=== PATIENT | female | born 1995 | race Hispanic/Latino ===

== ENCOUNTER 2020-11-28 17:27 | Emergency (ER) | payer BC ==
[2020-11-28] MEDS ORDERED: ACETAMINOPHEN 500 MG TAB ONE (18:30)
--- NOTE | 2020-11-28 18:37 | RAD REPORT ---
EXAM DESCRIPTION: RAD - Ankle Right 3 View - 11/28/2020 6:16 pm CLINICAL HISTORY: Right ankle pain FINDINGS: No fracture is seen. There is borderline widening of the medial clear space which could indicate an to the ligament
--- NOTE | 2020-11-28 19:17 | ER ---
Nurse's Notes [facility] Name: Kezia Jimenez Age: 25 yrs Sex: Female : 1995 Arrival Date: 11/28/2020 Time: 17:30 Bed Treatment Private MD: Diagnosis: Sprain of ankle-right Presentation: 11/28 17:39 Chief complaint: Patient states: Tripped over pool net while chasing daughter around ph pool, rolled R ankle,slight swelling noted, small abrasion as well. Coronavirus screen: Client denies travel out of the [place] in the last 14 days. At this time, the client does not indicate any symptoms associated with coronavirus-19. Ebola Screen: No symptoms or risks identified at this time. Initial Sepsis Screen: Does the patient meet any 2 criteria? No. Patient's initial sepsis screen is negative. Does the patient have a suspected source of infection? No. Patient's initial sepsis screen is negative. Risk Assessment: Do you want to hurt yourself or someone else? Patient reports no desire to harm self or others. Onset of symptoms was November 28, 2020. 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 - Social history:: Smoking status: Patient denies any tobacco usage or history of. Screenin:03 Abuse screen: Denies threats or abuse. Denies injuries from another. Nutritional ph screening: No deficits noted. Tuberculosis screening: No symptoms or risk factors identified. Fall Risk None identified. Assessment: 18:02 General: Appears in no apparent distress. comfortable, well groomed, Behavior is calm, ph cooperative, appropriate for age. Pain: Complains of pain in right ankle. Neuro: Level of Consciousness is awake, alert, obeys commands, Oriented to person, place, time, situation. Cardiovascular: Capillary refill < 3 seconds in bilateral fingers Patient's skin is warm and dry. Musculoskeletal: Circulation, motion, and sensation intact. Range of motion: intact in all extremities, Swelling present in right ankle. Injury Description: Abrasion sustained to right ankle. Vital Signs: 17:39 BP 133 / 80; Pulse 102; Resp 18; Temp 98.2; Pulse Ox 98% on R/A; Weight 104.33 kg; ph Height 5 ft. 5 in. (165.10 cm); 17:39 Body Mass Index 38.27 (104.33 kg, 165.10 cm) ph ED Course: 17:30 Patient arrived in ED. mr 17:40 Triage completed. ph 17:40 Arm band placed on Patient placed in an exam room. ph 17:48 Melquiades Cespedes PA is PHCP. cp 17:48 Jesús Barnes MD is Attending Physician. cp 18:02 Renetta Malone, RN is Primary Nurse. ph 18:03 Patient has correct armband on for positive identification. Bed in low position. Call ph light in reach. Door closed. Noise minimized. Warm blanket given. 18:16 XRAY Ankle RIGHT 3 view In Process Unspecified. EDMS 19:15 Amandeep Presley MD is Referral Physician. cp 19:41 No provider procedures requiring assistance completed. Patient did not have IV access ph during this emergency room visit. 19:41 Crutch training done. Ortho shoe applied to right foot. ph Administered Medications: 18:10 Drug: Tylenol 1000 mg Route: PO; ph 18:10 Follow up: Response: No adverse reaction ph Outcome: 19:16 Discharge ordered by MD. cp 19:41 Discharged to home with crutches. ph 19:41 Condition: good 19:41 Discharge instructions given to patient. 19:41 Instructed on discharge instructions, follow up and referral plans. medication usage, Demonstrated understanding of instructions, follow-up care, medications, crutch walking, Prescriptions given X 1. 19:42 Patient left the ED. ph Signatures: Dispatcher [employer] [facility] Rosy Mora Renetta Malone RN RN ph Melquiades Cespedes PA PA cp
--- NOTE | 2020-11-28 19:17 | EDPHYS ---
Physician Documentation [facility] Name: Kezia Jimenez Age: 25 yrs Sex: Female : 1995 Arrival Date: 11/28/2020 Time: 17:30 Bed Treatment Private MD: ED Physician Jesús Barnes HPI: 11/28 18:05 This 25 yrs old Female presents to ER via Wheelchair with complaints of Ankle cp Injury. 18:05 The patient presents with an injury, pain, that is acute. The complaints affect the cp right ankle. Onset: The symptoms/episode began/occurred just prior to arrival. Context: resulted from the patient tripping, The mechanism of injury involved eversion of the affected ankle. The patient can fully bear weight on the affected extremity. the patient is able to ambulate, with moderate difficulty. Associated signs and symptoms: Pertinent positives: swelling, Pertinent negatives: calf tenderness, numbness. Modifying factors: the symptoms are aggravated by weight bearing, movement. 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 - Social history:: Smoking status: Patient denies any tobacco usage or history of. ROS: 18:10 MS/extremity: Positive for injury or acute deformity, pain, swelling, tenderness, of cp the right ankle, Negative for decreased range of motion, paresthesias. 18:10 Constitutional: Negative for body aches, chills, fever. cp 18:10 Neck: Negative for pain with movement, pain at rest, stiffness. 18:10 Respiratory: Negative for cough, shortness of breath, wheezing. 18:10 Abdomen/GI: Negative for abdominal pain, nausea, vomiting, and diarrhea. 18:10 Back: Negative for pain at rest, pain with movement. 18:10 Neuro: Negative for altered mental status, headache, weakness. 18:10 All other systems are negative. Exam: 18:15 Constitutional: The patient appears in no acute distress, alert, awake, well developed, cp well nourished, obese. 18:15 Head/Face: Normocephalic, atraumatic. cp 18:15 Musculoskeletal/extremity: Extremities: grossly normal except: noted in the right ankle: pain, swelling, tenderness, There is no evidence of deformity, ROM: limited passive range of motion due to pain, in the right ankle, Pulses: noted to be 2+ in the right dorsalis pedis artery, Sensation intact. Achilles tendon palpated and intact, no pain to palpation noted proximal right fifth metatarsal and/or proximal fibula. 18:15 Skin: injury, abrasion(s), small abrasion noted, of the right ankle. Vital Signs: 17:39 BP 133 / 80; Pulse 102; Resp 18; Temp 98.2; Pulse Ox 98% on R/A; Weight 104.33 kg; ph Height 5 ft. 5 in. (165.10 cm); 17:39 Body Mass Index 38.27 (104.33 kg, 165.10 cm) ph Procedures: 19:20 Splinting: Splint applied to right ankle using walking boot. applied by nurse. Examined cp by me, post splint application: neurovascular intact, Patient tolerated well. 19:20 Crutch training provided to patient and/or family. Return demonstration given. cp MDM: 17:55 Patient medically screened. cp 18:00 Differential diagnosis: fracture, sprain, dislocation. cp 19:15 Data reviewed: vital signs, nurses notes, radiologic studies, plain films. cp 19:15 Test interpretation: by ED physician or midlevel provider: plain radiologic studies. cp Counseling: I had a detailed discussion with the patient and/or guardian regarding: the historical points, exam findings, and any diagnostic results supporting the discharge/admit diagnosis, radiology results, the need for outpatient follow up, a orthopedic surgeon, to return to the emergency department if symptoms worsen or persist or if there are any questions or concerns that arise at home. ED course: VSS. Pain improved with meds. Will discharge to home for continued monitoring. 11/28 17:53 Order name: XRAY Ankle RIGHT 3 view; Complete Time: 19:00 cp 11/28 19:12 Order name: Walking boot cp 11/28 19:12 Order name: Crutches cp Administered Medications: 18:10 Drug: Tylenol 1000 mg Route: PO; ph 18:10 Follow up: Response: No adverse reaction ph Disposition: 19:25 Chart complete. 11/29 07:08 Co-signature as Attending Physician, Jesús Barnes MD I agree with the assessment and kdr plan of care. Disposition Summary: 11/28/20 19:16 Discharge Ordered Location: Home cp Problem: new cp Symptoms: have improved cp Condition: Stable cp Diagnosis - Sprain of ankle - right cp Followup: cp - With: Amandeep Presley MD - When: 2 - 3 days - Reason: ankle sprain Discharge Instructions: - Discharge Summary Sheet cp - Elastic Bandage and RICE Therapy cp - Ankle Sprain cp Forms: - Medication Reconciliation Form cp - Thank You Letter cp - Antibiotic Education cp - Prescription Opioid Use cp Prescriptions: - Naprosyn 500 mg Oral Tablet - take 1 tablet by ORAL route 2 times per day take with food; 20 tablet; Refills: cp 0, Product Selection Permitted Signatures: Dispatcher [employer] EDJesús Peralta MD MD kdr Hall, Patricia, RN RN ph Melquiades Cespedes, PA PA cp
[2020-11-28 19:47] VITALS: BP 133/80; TEMP 98.2; O2SAT 98
== END 2020-11-28 19:42 | disposition home or self-care (01) ==
LOC: ER 17:27
DX: S93.401A Sprain of unspecified ligament of right ankle, initial encounter (principal); W01.0XXA Fall on same level from slipping, tripping and stumbling without subsequent striking against object, initial encounter
CPT/HCPCS: 99284

== ENCOUNTER 2021-01-16 20:00 | Emergency (ER) | payer BC ==
[2021-01-16] MEDS ORDERED: ACETAMINOPHEN 325 MG TABLET ONE (21:05)
[2021-01-16] MEDS ORDERED: CASIRIVIMAB/IMDEVIMAB 10 ML VIAL ONE (22:08)
[2021-01-16] MEDS ORDERED: NA CHLORIDE 0.9% 250 ML ONE (22:09)
--- NOTE | 2021-01-16 22:16 | EDPHYS ---
Physician Documentation [facility] Name: Kezia Jimenez Age: 25 yrs Sex: Female : 1995 Arrival Date: 01/16/2021 Time: 20:03 Bed 12 Private MD: ED Physician Nasir Vazquez HPI: 01/16 21:07 This 25 yrs old Female presents to ER via Ambulatory with complaints of COVID rn POSITIVE, BODY PAIN, CHILLS, NO TASTE OR SMELL. 21:07 The patient or guardian reports cough, described as mild, flu symptoms, myalgias, no rn appetite. 21:07 Onset: The symptoms/episode began/occurred 5 day(s) ago. Severity of symptoms: At their rn worst the symptoms were mild, in the emergency department the symptoms are unchanged. Modifying factors: The symptoms are alleviated by nothing, the symptoms are aggravated by nothing. Associated signs and symptoms: Pertinent positives: diarrhea, fever, rhinorrhea, Loss of taste and smell. The patient has not experienced similar symptoms in the past. The patient has been recently seen by a physician:. Patient reports about 5 days of fever, chills, myalgias, cough, diarrhea, fatigue, and loss of taste and smell. Covid +2 days ago. Reports returned today for persistent fever and muscle aches. Denies shortness of breath or chest pain.. 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 - Social history:: Smoking status: Patient denies any tobacco usage or history of. - Family history:: not pertinent. - Hospitalizations: : No recent hospitalization is reported. ROS: 21:07 Constitutional: Positive for fever and chills Eyes: Negative for injury, pain, redness, rn and discharge, ENT: Positive for congestion Neck: Negative for injury, pain, and swelling, Cardiovascular: Negative for chest pain, palpitations, and edema, Respiratory: Positive for cough, negative for shortness of breath Abdomen/GI: Negative for abdominal pain, nausea, vomiting Back: Negative for injury and pain, : Negative for injury, bleeding, discharge, and swelling, MS/Extremity: Negative for injury and deformity, Skin: Negative for injury, rash, and discoloration, Neuro: Negative for numbness, tingling, and seizure. Exam: 21:07 Constitutional: This is a well developed, well nourished patient who is awake, alert, rn and in no acute distress. Head/Face: Normocephalic, atraumatic. Eyes: Lids and lashes normal. Conjunctiva and sclera are non-icteric and not injected. Cornea within normal limits. Periorbital areas with no swelling, redness, or edema. ENT: No stridor Cardiovascular: Tachycardic, regular. Respiratory: Speaking full sentences, unlabored. No increased work of breathing, no retractions or nasal flaring. Skin: Warm, dry with normal turgor. Normal color with no rashes, no lesions, and no evidence of cellulitis. MS/ Extremity: Pulses equal, no cyanosis. Neuro: Awake and alert, GCS 15 Vital Signs: 20:36 BP 140 / 77; Pulse 113; Resp 20; Temp 100.4; Pulse Ox 100% on R/A; Weight 117.93 kg kg (R); Height 5 ft. 5 in. (165.10 cm); Pain 6/10; 21:00 BP 131 / 78; Pulse 112; Resp 22; Temp 100.7(O); Pulse Ox 100% on R/A; cc4 22:10 BP 121 / 70; Pulse 101; Resp 20; Temp 99.6(O); Pulse Ox 99% on R/A; cc4 23:38 BP 123 / 67 LA Sitting (auto/reg); Pulse 88; Resp 18; Temp 98.7(O); Pulse Ox 99% on kc4 R/A; Pain 0/10; 23:53 BP 128 / 72; Pulse 98; Resp 18; Temp 98.8(O); Pulse Ox 99% on R/A; Pain 0/10; kc4 09/08 00:08 BP 119 / 70; Pulse 92; Resp 18; Temp 98.8; Pulse Ox 99% on R/A; Pain 0/10; kc4 00:38 BP 118 / 73; Pulse 86; Resp 18; Temp 98.7(O); Pulse Ox 98% on R/A; Pain 0/10; kc4 01/16 20:36 Body Mass Index 43.27 (117.93 kg, 165.10 cm) kg 01/16 23:38 Regen completed kc4 MDM: 20:51 Patient medically screened. rn 22:13 Differential Diagnosis: Bronchitis Upper Respiratory Infection Viral Syndrome Other rn COVID. Data reviewed: vital signs, nurses notes. Data interpreted: Pulse oximetry: on room air is 100 %. Interpretation: normal. Counseling: I had a detailed discussion with the patient and/or guardian regarding: the historical points, exam findings, and any diagnostic results supporting the discharge/admit diagnosis, lab results, the need for outpatient follow up, to return to the emergency department if symptoms worsen or persist or if there are any questions or concerns that arise at home. Special discussion: I discussed with the patient/guardian in detail that at this point there is no indication for admission to the hospital. It is understood, however, that if the symptoms persist or worsen the patient needs to return immediately for re-evaluation. ED course: Patient without signs of Covid pneumonia. No oxygen requirement. Nontoxic. Patient overweight. Consented for Regeneron and administered. Will discharge with return precautions.. Administered Medications: 20:42 Drug: Tylenol 650 mg Route: PO; kg 23:42 Follow up: Response: No adverse reaction [facility] 22:10 Drug: REGEN-COV Dose Pack 120 mg/mL-120 mg/mL (EUA) 600 mg Route: IV; Rate: 600 mg/hr; cc4 Site: right antecubital; 23:38 Follow up: IV Status: Completed infusion [facility] 23:42 Follow up: Response: No adverse reaction [facility] 01/17 00:45 Follow up: Response: No adverse reaction [facility] Disposition Summary: 01/16/21 22:15 Discharge Ordered Location: Home rn Problem: new rn Symptoms: are unchanged rn Condition: Stable rn Diagnosis - SARS-associated coronavirus as the cause of diseases classified elsewhere rn - Fever, unspecified rn Followup: rn - With: Private Physician - When: As needed - Reason: Recheck today's complaints, Re-evaluation by your physician Discharge Instructions: - Discharge Summary Sheet rn - Fever, Adult rn - COVID-19 rn - 10 Things You Can Do to Manage Your COVID-19 Symptoms at Home - CDC rn - Viral Illness, Adult rn Forms: - Medication Reconciliation Form rn - Thank You Letter rn - 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
--- NOTE | 2021-01-16 22:16 | ER ---
Nurse's Notes [facility] Name: Kezia Jimenez Age: 25 yrs Sex: Female : 1995 Arrival Date: 01/16/2021 Time: 20:03 Bed 12 Private MD: Diagnosis: SARS-associated coronavirus as the cause of diseases classified elsewhere;Fever, unspecified Presentation: 01/16 20:36 Chief complaint: Patient states: Body aches, chills, loss of taste and smell. Symptoms kg starts 01/11, COVID + 01/15. Coronavirus screen: Vaccine status: Patient reports being unvaccinated. chills, headache, muscle pain, loss of taste or smell. Ebola Screen: Patient negative for fever greater than or equal to 101.5 degrees Fahrenheit, and additional compatible Ebola Virus Disease symptoms Patient denies exposure to infectious person. Patient denies travel to an Ebola-affected area in the 21 days before illness onset. Initial Sepsis Screen: Does the patient meet any 2 criteria? HR > 90 bpm. Does the patient have a suspected source of infection? No. Patient's initial sepsis screen is negative. Risk Assessment: Do you want to hurt yourself or someone else? Patient reports no desire to harm self or others. Onset of symptoms was January 11, 2021. 20:36 Method Of Arrival: Ambulatory kg 20:36 Acuity: DEJUAN 4 kg Triage Assessment: 20:43 General: Appears in no apparent distress. Behavior is calm, cooperative, appropriate kg for age, quiet. Pain: Complains of pain in Generalized. 01/17 00:03 General: Appears in no apparent distress. comfortable, Behavior is calm, cooperative, kc4 appropriate for age, Denies fever, chills. Pain:. Cardiovascular: No deficits noted. Respiratory: No deficits noted. GI: No deficits noted. : No deficits noted. Musculoskeletal: No deficits noted. 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 - Social history:: Smoking status: Patient denies any tobacco usage or history of. - Family history:: not pertinent. - Hospitalizations: : No recent hospitalization is reported. Screenin:44 Abuse screen: Denies threats or abuse. Denies injuries from another. Nutritional kg screening: No deficits noted. Tuberculosis screening: No symptoms or risk factors identified. Fall Risk None identified. Assessment: 21:00 General: Appears in no apparent distress. obese, well developed, well nourished, cc4 Behavior is calm, cooperative. Vital Signs: 20:36 BP 140 / 77; Pulse 113; Resp 20; Temp 100.4; Pulse Ox 100% on R/A; Weight 117.93 kg kg (R); Height 5 ft. 5 in. (165.10 cm); Pain 6/10; 21:00 BP 131 / 78; Pulse 112; Resp 22; Temp 100.7(O); Pulse Ox 100% on R/A; cc4 22:10 BP 121 / 70; Pulse 101; Resp 20; Temp 99.6(O); Pulse Ox 99% on R/A; cc4 23:38 BP 123 / 67 LA Sitting (auto/reg); Pulse 88; Resp 18; Temp 98.7(O); Pulse Ox 99% on kc4 R/A; Pain 0/10; 23:53 BP 128 / 72; Pulse 98; Resp 18; Temp 98.8(O); Pulse Ox 99% on R/A; Pain 0/10; kc4 0908 00:08 BP 119 / 70; Pulse 92; Resp 18; Temp 98.8; Pulse Ox 99% on R/A; Pain 0/10; kc4 00:38 BP 118 / 73; Pulse 86; Resp 18; Temp 98.7(O); Pulse Ox 98% on R/A; Pain 0/10; kc4 01/16 20:36 Body Mass Index 43.27 (117.93 kg, 165.10 cm) kg 07 23:38 Regen completed kc4 ED Course: 20:03 Patient arrived in ED. cf2 20:39 Triage completed. kg 20:44 Patient has correct armband on for positive identification. kg 20:44 No provider procedures requiring assistance completed. kg 20:51 Nasir Vazquez MD is Attending Physician. rn 21:05 Jailene Reyes is Primary Nurse. cc4 21:40 Patient #22g saline lock inserted right AC x1 attempt with no difficultuy, jose. well; cc4 instructed on order to administer Regen with information of med given to pt \T\ reading; consent signed. 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 Pulse ox on. NIBP on. Temp decreasing to 99.6 oral; IVPB Regen cc4 600mg/250ml NS hung \T\ infusing \T\ 270ml/hr/pump with no difficulty; monitored; instructed to call for any changes/difficulties; report given to ARTI Banda. 01/17 00:26 Primary Nurse role handed off by Jailene Reyes kc4 00:26 Lani Washington is Primary Nurse. [facility] 00:45 IV discontinued, intact, bleeding controlled, No redness/swelling at site. Pressure kc4 dressing applied. Administered Medications: 01/16 20:42 Drug: Tylenol 650 mg Route: PO; kg 23:42 Follow up: Response: No adverse reaction [facility] 22:10 Drug: REGEN-COV Dose Pack 120 mg/mL-120 mg/mL (EUA) 600 mg Route: IV; Rate: 600 mg/hr; cc4 Site: right antecubital; 23:38 Follow up: IV Status: Completed infusion [facility] 23:42 Follow up: Response: No adverse reaction [facility] 01/17 00:45 Follow up: Response: No adverse reaction 4 Outcome: 01/16 21:00 Condition: stable cc4 22:15 Discharge ordered by . arti 09 00:44 Discharged to home ambulatory. 4 Condition: stable Discharge instructions given to patient, Instructed on discharge instructions, follow up and referral plans. medication usage, Demonstrated understanding of instructions, follow-up care, medications. 00:45 Patient left the ED. 4 Signatures: Nasir Vazquez MD MD rn Frazier, Celesta cf2 Yancy Guzman RN RN Lani Washington kc4 Jailene Reyes 4
[2021-01-17 01:01] VITALS: BP 118/73; TEMP 98.7; O2SAT 98
== END 2021-01-17 00:45 | disposition home or self-care (01) ==
LOC: ER 20:00
DX: U07.1 COVID-19 (principal); R50.9 Fever, unspecified; B97.29 Other coronavirus as the cause of diseases classified elsewhere
CPT/HCPCS: 96365; 99284; J7050

== ENCOUNTER 2021-12-07 03:32 | Emergency (ER) | payer BC, OTHER ==
[2021-12-07 04:04] LABS: Hematocrit 35.6 % (36.0-45.0); Lymphocytes % 33.2 % (15.3-44.8); MCV 79.1 fL (80-100); MPV 8.4 fL (7.6-11.3)
[2021-12-07] MEDS ORDERED: MORPHINE 4 MG/ML SYR ONE (04:07)
[2021-12-07] MEDS ORDERED: ONDANSETRON 4 MG/2 ML VIAL ONE (04:07)
[2021-12-07 04:32] LABS: Potassium 3.2 mmol/L (3.5-5.1); Troponin High Sensitivity 4.1 pg/mL (<58.9)
[2021-12-07 05:50] LABS: Urine Blood Negative (Negative); Urine Glucose Negative (Negative); Urine Protein Negative (Negative); Urine Specific Gravity >=1.030 (1.005-1.030)
[2021-12-07] MEDS ORDERED: NA CHLORIDE 0.9% 1,000 ML ONE (06:20)
--- NOTE | 2021-12-07 06:49 | EDPHYS ---
Physician Documentation [facility] Name: Kezia Jimenez Age: 26 yrs Sex: Female : 1995 Arrival Date: 12/07/2021 Time: 03:34 Bed 3 Private MD: ED Physician Nasir Vazquez HPI: 12/07 03:53 This 26 yrs old Female presents to ER via Ambulatory with complaints of Chest rn Pain. 03:53 The patient or guardian reports chest pain that is located primarily in the anterior rn chest wall, left. The pain does not radiate. Associated signs and symptoms: Pertinent positives: shortness of breath, Pertinent negatives: abdominal pain, cough, diaphoresis, headache, lower extremity swelling, lightheadedness, palpitations, syncope, vomiting. The chest pain is described as sharp, stabbing. Duration: The patient or guardian reports multiple episodes. Modifying factors: The symptoms are alleviated by nothing. the symptoms are aggravated by deep breath. Severity of pain: At its worst the pain was moderate in the emergency department the pain is unchanged. The patient has not experienced similar symptoms in the past. The patient has not recently seen a physician. Pt reports chest pain, intermittent, left of sternum, worse with deep breath. No fever/cough. No trauma. No recent admission/immobilization. NO hx of dvt/PE. No famhx of early cardiac problems. No abd pain/vomiting. . 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 - Social history:: Smoking status: Patient denies any tobacco usage or history of. - Family history:: not pertinent. - Hospitalizations: : No recent hospitalization is reported. ROS: 03:53 Constitutional: Negative for fever, chills, and weight loss, Eyes: Negative for injury, rn pain, redness, and discharge, Neck: Negative for injury, pain, and swelling, Cardiovascular: Negative for palpitations, and edema, Respiratory: Negative for cough, wheezing Abdomen/GI: Negative for abdominal pain, nausea, vomiting, diarrhea, and constipation, MS/Extremity: Negative for injury and deformity, Skin: Negative for injury, rash, and discoloration, Neuro: Negative for headache, weakness, numbness, tingling, and seizure. 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 Head/Face: Normocephalic, atraumatic. Eyes: Periorbital areas with no swelling, redness, or edema. ENT: NO stridor Cardiovascular: Tachycardic, regular. No pulse deficits. Respiratory: Mild tachypnea, no wheezing, no retractions, splinted breaths Abdomen/GI: Soft, non-tender Skin: Warm, dry MS/ Extremity: Pulses equal, no cyanosis. Equal circumference. Neuro: Awake and alert, GCS 15 04:03 ECG was reviewed by the Attending Physician. rn Vital Signs: 03:44 BP 144 / 94; Pulse 110; Resp 20; Temp 98.4; Pulse Ox 100% ; Weight 122.47 kg; Height 5 tw5 ft. 5 in. (165.10 cm); Pain 6/10; 07:16 BP 127 / 70; Pulse 80; Resp 16; Pulse Ox 99% on R/A; kl 03:44 Body Mass Index 44.93 (122.47 kg, 165.10 cm) tw5 MDM: 03:34 Patient medically screened. rn 06:47 Differential diagnosis: acute pericarditis, anxiety, chest wall pain, pericarditis, rn pleurisy, pneumonia, pneumothorax, pulmonary embolus. Data reviewed: vital signs, nurses notes, lab test result(s), EKG, radiologic studies, CT scan, plain films, and as a result, I will discharge patient. Counseling: I had a detailed discussion with the patient and/or guardian regarding: the historical points, exam findings, and any diagnostic results supporting the discharge/admit diagnosis, lab results, radiology results, the need for outpatient follow up, to return to the emergency department if symptoms worsen or persist or if there are any questions or concerns that arise at home. Response to treatment: the patient's symptoms have mildly improved after treatment, and as a result, I will discharge patient. Special discussion: Based on the patient's history, exam, and Dx evaluation, there is no indication for emergent intervention or inpatient Tx. It is understood by the patient/guardian that if the Sx's persist or worsen they need to return immediately for re-evaluation. I discussed with the patient/guardian in detail that at this point there is no indication for admission to the hospital. It is understood, however, that if the symptoms persist or worsen the patient needs to return immediately for re-evaluation. ED course: No acute findings on workup, CT PE neg, no pneumonia, neg trop, no ischemia on ecg. Will dc home with return precautions given no oxygen requirement, no acute findings on workup, young age, and lack of risk factors. . 12/07 03:45 Order name: Basic Metabolic Panel; Complete Time: 04:35 rn 12/07 03:45 Order name: CBC with Diff; Complete Time: 04:25 rn 12/07 03:45 Order name: NT PRO-BNP; Complete Time: 04:35 rn 12/07 03:45 Order name: Troponin HS; Complete Time: 04:35 rn 12/07 05:50 Order name: Urine Dipstick-Ancillary; Complete Time: 06:14 EDMS 12/07 03:45 Order name: XRAY Chest (1 view) rn 12/07 03:45 Order name: EKG; Complete Time: 03:47 rn 12/07 03:45 Order name: Cardiac monitoring; Complete Time: 04:07 rn 12/07 03:46 Order name: CT Chest For PE Angio rn 12/07 03:45 Order name: EKG - Nurse/Tech; Complete Time: 04:07 rn 12/07 03:45 Order name: IV Saline Lock; Complete Time: 04:07 12/07 03:45 Order name: Labs collected and sent; Complete Time: 04:07 12/07 03:45 Order name: O2 Per Protocol; Complete Time: 04:07 12/07 03:45 Order name: O2 Sat Monitoring; Complete Time: 04:07 12/07 03:46 Order name: Urine Dipstick-Ancillary (obtain specimen); Complete Time: 05:49 rn 12/07 03:46 Order name: Urine Test (obtain specimen); Complete Time: 05:49 rn EC:03 Rate is 87 beats/min. Rhythm is regular. QRS [place] is Normal. [place] interval is normal. QRS rn interval is normal. QT interval is normal. No Q waves. T waves are Normal. No ST changes noted. Clinical impression: Normal ECG. Interpreted by me. Reviewed by me. Administered Medications: 04:07 Drug: morphine 4 mg Route: IVP; Infused Over: 4 mins; Site: right antecubital; vc1 04:07 Drug: Zofran (Ondansetron) 4 mg Route: IVP; Site: right antecubital; vc1 06:23 Drug: NS 0.9% 1000 ml Route: IV; Rate: 1000 ml; Site: right antecubital; Disposition Summary: 12/07/21 06:48 Discharge Ordered Location: Home rn Problem: new rn Symptoms: have improved rn Condition: Stable rn Diagnosis - Chest pain, unspecified rn Followup: rn - With: Private Physician - When: As needed - Reason: Recheck today's complaints, Re-evaluation by your physician Followup: rn - With: Leopoldo Padgett MD - When: As needed - Reason: Recheck today's complaints, Re-evaluation by your physician Discharge Instructions: - Discharge Summary Sheet rn - Nonspecific Chest Pain, Adult rn Forms: - Medication Reconciliation Form rn - Thank You Letter rn - 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 EDMS EDMS
--- NOTE | 2021-12-07 06:49 | ER ---
Nurse's Notes [facility] Name: Kezia Jimenez Age: 26 yrs Sex: Female : 1995 Arrival Date: 12/07/2021 Time: 03:34 Bed 3 Private MD: Diagnosis: Chest pain, unspecified Presentation: 12/07 03:44 Chief complaint: Patient states: "I woke up with a really bad pain in my chest. It is tw5 really sharp and it hurts to breath.". Coronavirus screen: Vaccine status: Patient reports being unvaccinated. Ebola Screen: Patient negative for fever greater than or equal to 101.5 degrees Fahrenheit, and additional compatible Ebola Virus Disease symptoms Patient denies exposure to infectious person. Patient denies travel to an Ebola-affected area in the 21 days before illness onset. Initial Sepsis Screen: Does the patient meet any 2 criteria? HR > 90 bpm. Does the patient have a suspected source of infection? No. Patient's initial sepsis screen is negative. Risk Assessment: Do you want to hurt yourself or someone else? Patient reports no desire to harm self or others. Onset of symptoms was December 07, 2021 at 00:00. 03:44 Method Of Arrival: Ambulatory tw5 03:44 Acuity: DEJUAN 3 tw5 Triage Assessment: 03:46 General: Appears uncomfortable, obese, Behavior is calm, cooperative, appropriate for tw5 age. Pain: Complains of pain in xiphoid area and mid-sternal area Pain currently is 6 out of 10 on a pain scale. Cardiovascular: Capillary refill < 3 seconds. 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 - Social history:: Smoking status: Patient denies any tobacco usage or history of. - Family history:: not pertinent. - Hospitalizations: : No recent hospitalization is reported. Screenin:30 Abuse screen: Denies threats or abuse. Nutritional screening: No deficits noted. kl Tuberculosis screening: No symptoms or risk factors identified. Fall Risk None identified. Assessment: 03:53 General: Jason Negro- [phone]. tw5 07:15 Pain: Pain began 1 day ago. kl 07:16 Pain: Pain does not radiate. kl Vital Signs: 03:44 BP 144 / 94; Pulse 110; Resp 20; Temp 98.4; Pulse Ox 100% ; Weight 122.47 kg; Height 5 tw5 ft. 5 in. (165.10 cm); Pain 6/10; 07:16 BP 127 / 70; Pulse 80; Resp 16; Pulse Ox 99% on R/A; kl 03:44 Body Mass Index 44.93 (122.47 kg, 165.10 cm) tw5 ED Course: 03:34 Patient arrived in ED. bp1 03:34 Nasir Vazquez MD is Attending Physician. rn 03:46 Triage completed. tw5 03:46 Arm band placed on Patient placed in an exam room, on a stretcher. tw5 04:00 XRAY Chest (1 view) In Process Unspecified. EDMS 04:29 No apparent distress. Resting quietly. kl 04:30 Inserted saline lock: 20 gauge in right antecubital area, using aseptic technique. kl ,using aseptic technique. per Rhonda [facility]. 06:14 CT Chest For PE Angio In Process Unspecified. EDMS 06:57 Leopoldo Padgett MD is Referral Physician. rn 07:15 Client placed on continuous cardiac and pulse oximetry monitoring. NIBP monitoring kl applied. 07:15 No provider procedures requiring assistance completed. IV discontinued, intact, kl bleeding controlled, No redness/swelling at site. Pressure dressing applied. 07:16 Patient has correct armband on for positive identification. kl 07:16 Patient maintains SpO2 saturation greater than 95% on room air. kl Administered Medications: 04:07 Drug: morphine 4 mg Route: IVP; Infused Over: 4 mins; Site: right antecubital; vc1 04:07 Drug: Zofran (Ondansetron) 4 mg Route: IVP; Site: right antecubital; vc1 06:23 Drug: NS 0.9% 1000 ml Route: IV; Rate: 1000 ml; Site: right antecubital; kl Medication: 07:16 VIS not applicable for this client. kl Outcome: 06:48 Discharge ordered by . rn 07:15 Discharged to home ambulatory. kl 07:15 Condition: good 07:15 Discharge instructions given to patient, Instructed on discharge instructions, follow up and referral plans. Demonstrated understanding of instructions, follow-up care. 07:22 Patient left the ED. ll1 Signatures: Dispatcher [employer] Tia Weaver, Nasir Pak RN, MD MD rn Lewis, Lynsay, RN RN 1 Ana De Dios Tiffany tw5 Rhonda Davenport RN RN vc1
[2021-12-07 07:36] VITALS: TEMP 98.4
[2021-12-07 07:44] VITALS: BP 127/70; O2SAT 99
--- NOTE | 2021-12-07 10:58 | RAD REPORT ---
EXAM DESCRIPTION: CT - Chest For Pe Angio - 12/07/2021 7:15 am CLINICAL HISTORY: The patient is 26 years old and is Female; pleuritic pain, tachycardic, rule out P E TECHNIQUE: Axial computed tomographic angiography images of the chest with intravenous contrast. S agittal and coronal reformatted images were created and reviewed. This CT exam was performed using one or more of the following dose reduction techniques: automated exposure control, adjustment of t he mA and/or kV according to patient size, and/or use of iterative reconstruction technique. MIP re constructed images were created and reviewed. COMPARISON: No relevant prior studies available. FINDINGS: Pulmonary arteries: No PE identified. Aorta: No acute findings. No thoracic aortic aneurysm. Lungs: No pulmonary consolidation or groundglass opacities to suggest pneumonia. Pleural space: No pleural effusion or pneumothorax. Heart: Unremarkable. No cardiomegaly. No significant pericardial effusion. No evidence of R V dysfunction. Mediastinum: No pneumomediastinum. Bones/joints: No acute fracture. No dislocation. Soft tissues: Unremarkable. Lymph nodes: Unremarkable. No enlarged lymph nodes. Liver: Fatty liver. Gallbladder and bile ducts: The cystectomy without biliary dilatation. IMPRESSION: No PE identified. Electronically signed by: Kati Gonzalez MD 12/07/2021 6:34 AM CDT Due to temporary technical issues with the PACS/Fluency reporting system, reports are being signed by the in house radiologists without review as a courtesy to insure prompt reporting. The interpreting radiologist is fully responsible for the content of the report.
--- NOTE | 2021-12-07 11:29 | RAD REPORT ---
EXAM DESCRIPTION: RAD - Chest Single View - 12/07/2021 3:58 am CLINICAL HISTORY: The patient is 26 years old and is Female; CHEST PAIN TECHNIQUE: Frontal view of the chest. COMPARISON: No relevant prior studies available. FINDINGS: Lungs: Mildly prominent interstitial markings. No consolidation. Pleural space: Unremarkable. No pneumothorax. Heart: Unremarkable. Mediastinum: Unremarkable. Bones/joints: Unremarkable. IMPRESSION: Mildly prominent interstitial markings. No consolidation. Electronically signed by: Clark Woods MD 12/07/2021 4:05 AM CDT Due to temporary technical issues with the PACS/Fluency reporting system, reports are being signed by the in house radiologists without review as a courtesy to insure prompt reporting. The interpreting radiologist is fully responsible for the content of the report.
--- NOTE | 2021-12-07 15:19 | EKG ---
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
== END 2021-12-07 07:22 | disposition home or self-care (01) ==
LOC: ER 03:32
DX: R07.89 Other chest pain (principal)
CPT/HCPCS: 93005; 85025; 80048; 36415; 81003; 84484; 83880; 71275; 71045; Q9967; J7030; J2405; 96374; 96375; 99284

== ENCOUNTER 2024-12-24 01:57 | Emergency (ER) | payer OTHER, SELFPAY ==
[2024-12-24 02:33] LABS: Absolute Lymphocytes (CBC) 2.4 K/uL (0.7-4.9); Hematocrit 39.0 % (36.0-45.0); Hemoglobin 12.7 g/dL (12.0-15.0); MCH 25.8 pg (27.0-35.0); MCHC 32.5 g/dL (32.0-36.0); MCV 79.5 fL (80-100); MPV 9.0 fL (7.6-11.3); Nucleated RBC Absolute Count 0.0 (0-0); Nucleated Red Blood Cells % 0.0 % (0-0); RBC Red Blood Cell Count 4.91 M/uL (3.86-4.86); White Blood Count 7.30 thou/uL (4.3-10.9)
[2024-12-24] MEDS ORDERED: DIAZEPAM 2 MG TABLET ONE (02:36)
[2024-12-24 02:56] LABS: Anion Gap 9.5 mEq/L (5.0-15.0); BUN Blood Urea Nitrogen 8.0 mg/dL (7-18); Glucose Level 116.0 mg/dL (74-106); Potassium 3.5 mEq/L (3.5-5.1); Troponin High Sensitivity 3.4 pg/mL (<58.9)
--- NOTE | 2024-12-24 03:58 | ER ---
Nurse's Notes [facility] Name: Kezia Jimenez Age: 29 yrs Sex: Female : 1995 Arrival Date: 12/24/2024 Time: 01:57 Bed 7 Private MD: Diagnosis: Chest pain, unspecified Presentation: 12/24 02:10 Chief complaint: Patient states: PT C/O LEFT CHEST WALL PAIN THAT RADIATES TO LEFT br2 UPPER ARM...TINGLING. DENIES ANY OTHER SYMPTOMS. Coronavirus screen: Client denies travel out of the [place] in the last 14 days. Ebola Screen: Patient denies exposure to infectious person. Initial Sepsis Screen: Does the patient meet any 2 criteria? No. Patient's initial sepsis screen is negative. Does the patient have a suspected source of infection? No. Patient's initial sepsis screen is negative. Risk Assessment: Do you want to hurt yourself or someone else? Patient reports no desire to harm self or others. Onset of symptoms was December 23, 2024 at 23:00. 02:10 Method Of Arrival: Ambulatory br2 02:10 Acuity: DEJUAN 3 br2 Triage Assessment: 02:17 General: Appears in no apparent distress. comfortable, Behavior is calm, cooperative. br2 Pain: Complains of pain in anterior aspect of left upper chest Pain radiates to left arm Pain currently is 4 out of 10 on a pain scale. 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 - Infectious Disease History:: Denies. - Social history:: Smoking status: Patient denies any tobacco usage or history of. Patient/guardian denies using alcohol, street drugs. - Family history:: not pertinent. - Hospitalizations: : No recent hospitalization is reported. Screenin:07 [facility] ED Fall Risk Assessment (Adult) History of falling in the last 3 months, bm8 including since admission No falls in past 3 months (0 pts) Confusion or Disorientation No (0 pts) Intoxicated or Sedated No (0 pts) Impaired Gait No (0 pts) Mobility Assist Device Used No (0 pt) Altered Elimination No (0 pt) Score/Fall Risk Level 0 - 2 = Low Risk Oriented to surroundings, Maintained a safe environment, Educated pt \T\ family on fall prevention, incl call for assistance when getting out of bed, Assessed \T\ reinforced patient's understanding of fall precautions, Hourly rounding (assess needs \T\ fall precautionary measures) done, Used ambulatory aids as needed (educated on \T\ assisted with), Used gait belt as appropriate. Abuse screen: Denies threats or abuse. Nutritional screening: No deficits noted. Tuberculosis screening: No symptoms or risk factors identified. Assessment: 03:07 Reassessment: Patient appears in no apparent distress at this time. Patient and/or bm8 family updated on plan of care and expected duration. Pain level reassessed. Patient is alert, oriented x 3, equal unlabored respirations, skin warm/dry/pink. Patient denies pain at this time. Patient states feeling better. Patient states symptoms have improved. General: Appears in no apparent distress. comfortable, Behavior is calm, cooperative, appropriate for age. Pain: Denies pain. Neuro: No deficits noted. Level of Consciousness is awake, alert, obeys commands, Oriented to person, place, time, situation, Appropriate for age. Cardiovascular: No deficits noted. Denies chest pain, Capillary refill < 3 seconds in bilateral fingers Patient's skin is warm and dry. Respiratory: Airway is patent Respiratory effort is even, unlabored, Respiratory pattern is regular, symmetrical. GI: No signs and/or symptoms were reported involving the gastrointestinal system. : No signs and/or symptoms were reported regarding the genitourinary system. EENT: No signs and/or symptoms were reported regarding the EENT system. Derm: No signs and/or symptoms reported regarding the dermatologic system. Musculoskeletal: No signs and/or symptoms reported regarding the musculoskeletal system. 04:19 Reassessment: Patient appears in no apparent distress at this time. Patient and/or bm8 family updated on plan of care and expected duration. Pain level reassessed. Patient is alert, oriented x 3, equal unlabored respirations, skin warm/dry/pink. Patient denies pain at this time. Patient states feeling better. Patient states symptoms have improved. Vital Signs: 02:10 BP 153 / 82; Pulse 95; Resp 20; Temp 97.2; Pulse Ox 99% ; Weight 123.38 kg; Height 5 br2 ft. 5 in. ; Pain 4/10; 03:01 BP 133 / 86; rn 03:01 Pulse 82; rn 03:07 BP 133 / 86; Pulse 93; Resp 15; Temp 97.2; Pulse Ox 99% ; Pain 0/10; bm8 04:19 BP 133 / 84; Pulse 71; Resp 15; Temp 97.2; Pulse Ox 100% ; Pain 0/10; bm8 02:10 Body Mass Index 45.26 (123.38 kg, 165.1 cm) br2 02:10 Pain Scale: Adult br2 03:07 Pain Scale: Adult bm8 04:19 Pain Scale: Adult bm8 Radha Coma Score: 03:07 Eye Response: spontaneous(4). Motor Response: obeys commands(6). Verbal Response: bm8 oriented(5). Total: 15. 04:19 Eye Response: spontaneous(4). Motor Response: obeys commands(6). Verbal Response: bm8 oriented(5). Total: 15. ED Course: 01:58 Patient arrived in ED. [id number] 02:00 Nasir Vazquez MD is Attending Physician. rn 02:14 Initial lab(s) drawn, by ED staff, sent to lab. Inserted saline lock: 18 gauge in right rk3 antecubital area, using aseptic technique. 02:15 Rhonda Davenport, ARTI is Primary Nurse. vc1 02:15 EKG done, by ED staff, reviewed by Nasir Vazquez MD. rk3 02:17 Triage completed. br2 02:17 Arm band placed on. br2 02:39 XRAY Chest (1 view) In Process Unspecified. EDMS 03:07 No provider procedures requiring assistance completed. Patient maintains SpO2 bm8 saturation greater than 95% on room air. 03:07 Patient has correct armband on for positive identification. Bed in low position. Call bm8 light in reach. Side rails up X2. Adult w/ patient. Client placed on continuous cardiac and pulse oximetry monitoring. NIBP monitoring applied. potline monitor on. Pulse ox on. NIBP on. Door closed. Noise minimized. Warm blanket given. Pillow given. Verbal reassurance given. Head of bed elevated. 04:19 IV discontinued, intact, bleeding controlled, No redness/swelling at site. Pressure bm8 dressing applied. 04:19 Provided Education on: post er care. bm8 Administered Medications: 02:37 Drug: Diazepam PO 2 mg PO once Route: PO; bm8 04:20 Follow up: Response: No adverse reaction bm8 Medication: 03:07 VIS not applicable for this client. bm8 Outcome: 03:58 Discharge ordered by . rn 04:19 Discharged to home ambulatory, bm8 04:19 Condition: stable 04:19 Discharge instructions given to patient, Instructed on discharge instructions, follow up and referral plans. no drinking with medication, no driving heavy equipment, medication usage, safety practices, Demonstrated understanding of instructions, follow-up care, medications, 04:20 Patient left the ED. bm8 Signatures: Dispatcher [employer] EDMS Nasir Vazquez MD MD rn Jeffries, Jennifer jj6 Rhonda Davenport RN RN vc1 Ronal Pearl RN RN bm8 Mary Donald RN RN br2 Juventino Wells rk3
--- NOTE | 2024-12-24 03:58 | EDPHYS ---
Physician Documentation [facility] Name: Kezia Jimenez Age: 29 yrs Sex: Female : 1995 Arrival Date: 12/24/2024 Time: 01:57 Bed 7 Private MD: ED Physician Nasir Vazquez HPI: 12/24 02:28 This 29 yrs old Female presents to ER via Ambulatory with complaints of Chest rn Pain, Arm Pain, Numbness. 02:28 The patient or guardian reports chest pain that is located primarily in the anterior rn chest wall. The pain radiates to the left arm. The chest pain is described as "Soreness". 02:29 Patient reports left-sided chest pain, radiates to left arm, associated with tingling. rn Began 3 hours ago. Slight change when taking deep breath. Does report recent upper respiratory infection with congestion and sore throat. No cough. No recent procedure. No history of DVT or PE. No hemoptysis. No trauma. Denies .. CRITICAL CARE REGISTERED NURSE: 02:17 LMP 06/04/2024, unknown br2 Historical: - Allergies: 02:17 No Known Allergies; br2 - PMHx: 02:17 Anxiety; br2 - PSHx: 02:17 section; Cholecystectomy; br2 - Immunization history:: Adult Immunizations not up to date. - Infectious Disease History:: Denies. - Social history:: Smoking status: Patient denies any tobacco usage or history of. Patient/guardian denies using alcohol, street drugs. - Family history:: not pertinent. - Hospitalizations: : No recent hospitalization is reported. ROS: 02:29 Constitutional: Negative for fever, chills, and weight loss, Cardiovascular: Positive rn for chest pain Respiratory: Negative for shortness of breath, cough, wheezing Abdomen/GI: Negative for abdominal pain, nausea, vomiting, diarrhea, and constipation, MS/Extremity: Negative for injury and deformity, Skin: Negative for injury, rash, and discoloration, Neuro: Negative for headache, weakness, and seizure, Exam: 02:29 Constitutional: This is a well developed, well nourished patient who is awake, alert, rn very anxious and hyperventilating Head/Face: Normocephalic, atraumatic. Cardiovascular: Regular rate and rhythm. No pulse deficits. Respiratory: Hyperventilating Abdomen/GI: Soft, non-tender Skin: No cyanosis Neuro: Awake and alert, GCS 15 04:24 ECG was reviewed by the Attending Physician. rn Vital Signs: 02:10 BP 153 / 82; Pulse 95; Resp 20; Temp 97.2; Pulse Ox 99% ; Weight 123.38 kg; Height 5 br2 ft. 5 in. ; Pain 4/10; 03:01 BP 133 / 86; rn 03:01 Pulse 82; rn 03:07 BP 133 / 86; Pulse 93; Resp 15; Temp 97.2; Pulse Ox 99% ; Pain 0/10; bm8 04:19 BP 133 / 84; Pulse 71; Resp 15; Temp 97.2; Pulse Ox 100% ; Pain 0/10; bm8 02:10 Body Mass Index 45.26 (123.38 kg, 165.1 cm) br2 02:10 Pain Scale: Adult br2 03:07 Pain Scale: Adult bm8 04:19 Pain Scale: Adult bm8 Radha Coma Score: 03:07 Eye Response: spontaneous(4). Motor Response: obeys commands(6). Verbal Response: bm8 oriented(5). Total: 15. 04:19 Eye Response: spontaneous(4). Motor Response: obeys commands(6). Verbal Response: bm8 oriented(5). Total: 15. MDM: 02:00 Medical Screening Exam initiated rn 02:31 ED course: Patient states has appointment with Dr. Vasquez later today. rn 03:56 Differential diagnosis: acute pericarditis, anxiety, chest wall pain, costochondritis, rn esophagitis, gastritis, gastroesophageal reflux disease (GERD), pleurisy, pneumonia, pneumothorax, pulmonary embolus. HEART Score: History: Slightly Suspicious (0), ECG: Normal (0), Age: < or = 45 years (0), Risk Factors: No Risk Factors Known (0), Troponin: < or = 1 x Normal Limit (0), Total Score = 0. Data reviewed: vital signs, nurses notes, lab test result(s), EKG, radiologic studies, plain films, and as a result, I will discharge patient. Independent interpretation of the following test(s) in the Emergency Department EKG: See my EKG interpretation above X-Ray: My interpretation is Chest x-ray images negative for pneumonia or pneumothorax per my interpretation. Care significantly affected by the following chronic conditions: Anxiety. Counseling: I had a detailed discussion with the patient and/or guardian regarding the historical points, exam findings, and any diagnostic results supporting the discharge/admit diagnosis, lab results, radiology results, the need for outpatient follow up, to return to the emergency department if symptoms worsen or persist or if there are any questions or concerns that arise at home. ED course: I have personally reviewed all of the results, including but not limited to blood tests and imaging deemed necessary to safely discharge this patient at this time. All results given to and printed out for patient. I personally went over all the results with the patient and answered all questions. Patient will follow-up with PCP and or specialist as discussed. Return precautions given and understood.. 12/24 02:01 Order name: Basic Metabolic Panel; Complete Time: 03: rn 12/24 02:01 Order name: CBC with Diff; Complete Time: 03: rn 12/24 02:01 Order name: Troponin HS; Complete Time: 03: rn 12/24 02:18 Order name: D-Dimer; Complete Time: 03: rn 12/24 02:01 Order name: XRAY Chest (1 view) rn 12/24 02:01 Order name: Cardiac monitoring; Complete Time: 02: rn 12/24 02:01 Order name: EKG - Nurse/Tech; Complete Time: 02: rn 12/24 02:01 Order name: IV Saline Lock; Complete Time: 02: rn 12/24 02:01 Order name: Labs collected and sent; Complete Time: 02: rn 12/24 02:01 Order name: O2 Per Protocol; Complete Time: 02:12/24 02:01 Order name: O2 Sat Monitoring; Complete Time: 02:12 rn EC:24 Rate is 87 beats/min. Rhythm is regular. QRS [place] is Normal. [place] interval is normal. QRS rn interval is normal. QT interval is normal. No Q waves. T waves are Normal. No ST changes noted. Clinical impression: Normal ECG. Interpreted by me. Reviewed by me. 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 EDMS EDMS 02:01 02:01 CBC+H.LAB.BRZ ordered. EDMS EDMS 02:01 02:01 Troponin High Sensitivity+C.LAB.BRZ ordered. EDMS EDMS 02:01 02:01 Chest Single View+RAD.RAD.BRZ ordered. EDMS EDMS 02:18 02:18 D-DIMER+COAG.LAB.BRZ ordered. EDMS EDMS
--- NOTE | 2024-12-24 06:08 | RAD REPORT ---
EXAM DESCRIPTION: Chest Single View CLINICAL HISTORY: CHEST PAIN COMPARISON: None. FINDINGS: 1 view(s) of the chest. Tubes and lines: Leads overlie the chest. Cardiomediastinal silhouette: Normal size and contour. Lungs: No consolidation, pneumothorax, or pleural effusion. Bones: No acute osseous abnormality. Upper abdomen: No abnormality identified. IMPRESSION: 1. No acute pulmonary process identified. Electronically signed by: Dale Johnson DO 12/24/2024 03:40 AM CDT 4ZDM Due to temporary technical issues with the PACS/[id number] reporting system, reports are being reema d by the in-house radiologist without review as a courtesy to ensure prompt reporting the interpreting radiologist is fully responsible for the content of the report. Transcribed Date/Time: 12/24/2024 6:07 AM
[2024-12-24 08:54] VITALS: TEMP 97.2
[2024-12-24 08:59] VITALS: BP 133/84; O2SAT 100
== END 2024-12-24 04:20 | disposition home or self-care (01) ==
LOC: ER 01:57
DX: R07.9 Chest pain, unspecified (principal)
CPT/HCPCS: 36415; 71045; 80048; 84484; 85025; 85379; 93005; 99285